=== PATIENT | female | born 1960 | race African-American/Black ===

== ENCOUNTER 2023-10-19 04:27 | Emergency (ER) | payer BC, MEDICAID ==
[~2023-10-19] VITALS: Ht 167.6 cm; Wt 108.0 kg
[2023-10-19 04:36] VITALS: PULSE 69
[2023-10-19 05:07] VITALS: BP 142/95; RESP 16; O2SAT 96
[2023-10-19 06:28] VITALS: TEMP 98.4
[2023-10-19] MEDS: TETANUS, DIPHTHERIA, PERTUSSIS VAC/PF 0.5ML (>10YR OLD) IM ONE (06:28)
[2023-10-19] MEDS: ACETAMINOPHEN 325MG TABLET PO ONE (06:28)
[2023-10-19] MEDS ORDERED: IBUP-2029 MT (07:10)
== END 2023-10-19 09:18 | disposition home or self-care (01) ==
LOC: ER 04:27
DX: S83.92XA Sprain of unspecified site of left knee, initial encounter (principal); Z86.73 Personal history of transient ischemic attack (TIA), and cerebral infarction without residual deficits; Z98.890 Other specified postprocedural states; W01.0XXA Fall on same level from slipping, tripping and stumbling without subsequent striking against object, initial encounter; Y93.89 Activity, other specified; Y92.89 Other specified places as the place of occurrence of the external cause; Y99.8 Other external cause status
CPT/HCPCS: 73562; 73590; 90471; 90715; 99284

== ENCOUNTER 2024-08-22 09:14 | Emergency (ER) | payer BC, MEDICAID ==
[~2024-08-22] VITALS: Ht 167.6 cm; Wt 91.0 kg
[~2024-08-22 09:14] MED LIST: IBUP-2029 MT
[2024-08-22 09:28] VITALS: TEMP 36.8; O2SAT 95
[2024-08-22 10:22] LABS: BASOPHILS % 0.7 % (0.0-2.0); DIFFERENTIAL COMMENT 0; EOSINOPHILS % 2.3 % (0.0-5.0); HEMATOCRIT. 43.5 % (36.0-48.0); HEMOGLOBIN. 13.8 g/dL (12.0-16.0); LYMPHOCYTES % 34.9 % (20.0-50.0); MEAN CORPUSCULAR HEMOGLOBIN 26.5 pg (28.0-32.0); MEAN CORPUSCULAR HGB CONC 31.7 g/dL (31.0-37.0); MEAN CORPUSCULAR VOLUME 83.7 fL (81.0-99.0); MEAN PLATELET VOLUME 10.5 fl (7.4-10.4); MONOCYTES % 7.6 % (2.0-8.0); NEUTROPHILS % 54.5 % (40.0-76.0); PLATELET 229 x1000/uL (130-400); RED CELL DISTRIBUTION WIDTH 15.8 % (11.6-14.6); WHITE BLOOD COUNT 7.5 x1000/uL (4.5-11.0)
[2024-08-22 10:40] LABS: CHLORIDE 107 mEq/L (98-107); POTASSIUM 3.6 mEq/L (3.5-5.1); SODIUM 143 mEq/L (136-145)
[2024-08-22 10:41] LABS: CARBON DIOXIDE 26 mEq/L (21-32)
[2024-08-22 10:46] LABS: CREATININE 0.7 mg/dL (0.6-1.0); GLUCOSE 91 mg/dL (70-105); UREA NITROGEN BLOOD 13 mg/dL (9-23)
[2024-08-22] MEDS: LIDOCAINE 5% PATCH TOP SCH (10:48)
[2024-08-22] MEDS: KETOROLAC 30MG/ML VIAL IM ONE (10:48)
[2024-08-22 11:00] LABS: TROPONIN I HIGH SENSITIVITY < 4 ng/L (3.0-34)
[2024-08-22] MEDS ORDERED: IBUP-2028 MT (11:23)
[2024-08-22] MEDS ORDERED: LIDO700A30 TP (11:23)
[2024-08-22 11:42] VITALS: BP 139/93; PULSE 60; RESP 18; O2SAT 100
== END 2024-08-22 11:41 | disposition home or self-care (01) ==
LOC: ER 09:14
DX: M79.601 Pain in right arm (principal); Z98.890 Other specified postprocedural states; Z86.73 Personal history of transient ischemic attack (TIA), and cerebral infarction without residual deficits
CPT/HCPCS: 99285; 71045; 80048; 85025; 84484; 36415; 73030; 93005; 96372; J1885

== ENCOUNTER 2024-10-28 10:45 | Emergency (ER) | payer BC, MEDICAID ==
[~2024-10-28] VITALS: Ht 160 cm; Wt 94.0 kg
[~2024-10-28 10:45] MED LIST changes: +IBUP-2028 MT; +LIDO700A30 TP
[2024-10-28 11:01] VITALS: O2SAT 96
[2024-10-28 12:55] LABS: BASOPHILS % 0.7 % (0.0-2.0); EOSINOPHILS % 2.4 % (0.0-5.0); HEMATOCRIT. 43.2 % (36.0-48.0); HEMOGLOBIN. 13.9 g/dL (12.0-16.0); LYMPHOCYTES % 34.2 % (20.0-50.0); MEAN PLATELET VOLUME 10.1 fl (7.4-10.4); MONOCYTES % 8.6 % (2.0-8.0); NEUTROPHILS % 54.1 % (40.0-76.0); PLATELET 226 x1000/uL (130-400); RED BLOOD CELL COUNT 5.10 mill/uL (4.2-5.4); RED CELL DISTRIBUTION WIDTH 15.3 % (11.6-14.6)
[2024-10-28 13:18] LABS: CREATININE 0.8 mg/dL (0.6-1.0); UREA NITROGEN BLOOD 14 mg/dL (9-23)
[2024-10-28 13:20] LABS: ASPARTATE AMINOTRANSFERASE 16 IU/L (<34); BILIRUBIN DIRECT 0.1 mg/dL (<=3.0); BILIRUBIN TOTAL 0.4 mg/dL (0.1-1.0)
[2024-10-28 13:21] LABS: INR 1.0; PROTEIN TOTAL 7.1 g/dL (6.0-8.3)
[2024-10-28] MEDS ORDERED: PROM12.513 MT (14:43)
[2024-10-28 14:57] VITALS: BP 157/90; PULSE 58; RESP 14; TEMP 37.2; O2SAT 100
== END 2024-10-28 15:02 | disposition home or self-care (01) ==
LOC: ER 10:45
DX: R51.9 Headache, unspecified (principal); R42 Dizziness and giddiness; I10 Essential (primary) hypertension; R56.9 Unspecified convulsions; Z79.01 Long term (current) use of anticoagulants; Z86.73 Personal history of transient ischemic attack (TIA), and cerebral infarction without residual deficits; Z90.710 Acquired absence of both cervix and uterus; Z98.2 Presence of cerebrospinal fluid drainage device; Z79.899 Other long term (current) drug therapy
CPT/HCPCS: 36415; 80048; 80076; 85025; 99284

== ENCOUNTER 2024-12-19 02:23 | Emergency (ER) | payer BC, MEDICAID ==
[~2024-12-19] VITALS: Ht 160 cm; Wt 93.0 kg
[~2024-12-19 02:23] MED LIST changes: +IBUP-1455 MT; -IBUP-2029 MT; +PROM12.513 MT
[2024-12-19 02:44] VITALS: O2SAT 96
[2024-12-19] MEDS: LIDOCAINE 5% PATCH TOP STA (04:37)
[2024-12-19] MEDS: KETOROLAC 30MG/ML VIAL IM ONE (04:39)
[2024-12-19 04:57] LABS: CLARITY URINE CLOUDY (CLEAR); COLOR URINE YELLOW (YELLOW); GLUCOSE URINE NEGATIVE (NEGATIVE); KETONES URINE NEGATIVE (NEGATIVE); LEUKOCYTE ESTERASE URINE NEGATIVE (NEGATIVE); NITRITE URINE NEGATIVE (NEGATIVE); OCCULT BLOOD URINE NEGATIVE (NEGATIVE); PH URINE 6.0 (4.5-8.0); PROTEIN URINE NEGATIVE (NEGATIVE); SPECIFIC GRAVITY URINE 1.016 (1.005-1.030); UROBILINOGEN URINE 0.2 E.U./dL (0.2-1.0)
[2024-12-19 05:23] LABS: BACTERIA URINE TRACE; RBC URINE NONE SEEN /hpf (0-2); SQUAMOUS EPITHELIAL CELL URINE 1+ /lpf (RARE/1+); WBC URINE 0-2 /hpf (0-2)
[2024-12-19] MEDS ORDERED: LIDO700A30 TP (05:32)
[2024-12-19] MEDS ORDERED: KETO10TA2 MT (05:32)
[2024-12-19 05:47] VITALS: BP 140/85; PULSE 55; RESP 18; TEMP 36.9; O2SAT 96
== END 2024-12-19 05:48 | disposition home or self-care (01) ==
LOC: ER 02:23
DX: M54.9 Dorsalgia, unspecified (principal); I10 Essential (primary) hypertension; Z90.710 Acquired absence of both cervix and uterus; Z86.73 Personal history of transient ischemic attack (TIA), and cerebral infarction without residual deficits; Z79.899 Other long term (current) drug therapy
CPT/HCPCS: 99283; 81003; 96372; J1885